=== PATIENT | female | born 1960 | race Two or more races ===

== ENCOUNTER → 2024-05-29 | Outpatient (CLI) | payer MEDICAID, SELFPAY ==
--- NOTE | 2024-05-29 09:30 | XR_ITS ---
Examination: Screening digital mammography, bilateral Computer aided detection 3-D breast Tomosynthesis, bilateral Date and time of exam: May 29, 2024 0923 hours Compared to mammograms dating to October 12, 2009 Indication: Screening Technique: Nonmagnified MLO, CC views of the breasts to been obtained, reconstructed from 3-D Tomosynthesis images. R2 computer aided detection program utilized for evaluation of suspicious masses and/or abnormal calcifications. 3-D Tomosynthesis images obtained. Findings: Scattered areas of fibroglandular density Benign calcifications No interval suspicious masses Impression: BI-RADS category II: Benign Findings. Recommend 1 year follow-up mammogram.
== END | disposition home or self-care (01) ==
LOC: CDIM 09:04
PROVIDERS: Referring Provider Physician Assistant; Visit Provider Physician Assistant
DX: Z12.31 Encounter for screening mammogram for malignant neoplasm of breast (principal); R92.323 Mammographic fibroglandular density, bilateral breasts; R92.1 Mammographic calcification found on diagnostic imaging of breast
CPT/HCPCS: 77063; 77067

== ENCOUNTER 2025-03-19 14:17 | Emergency (ER) | payer MEDICARE, MEDICAID, SELFPAY ==
[2025-03-19 14:41] VITALS: BP 131/82; PULSE 73; RESP 18; TEMP 36.7; O2SAT 96
--- NOTE | 2025-03-19 15:02 | PD.EDEYE ---
ED Eye Problem RME/HPI General Chief complaint: Eye Problems Stated complaint: SWELLING L) EYE Time Seen by Provider: 03/19/25 14:24 Arrival date/time: 03/19/25 14:17 64-year-old female reports with complaints of swelling around the left eye that began this morning. Patient says 2 days ago she used a hair product that contains some chemicals that left her scalp burning and itching and then she awoke this morning with left eye swelling but no pain no discharge no changes in vision no shortness of breath no tongue or face swelling. Patient states that she has not taken any medications for symptoms Limitations: no limitations Related Data Home Medications ?Medication ?Instructions ?Recorded ?Confirmed cyclobenzaprine 5 mg tablet 5 mg PO HS 07/05/22 07/05/22 meloxicam 7.5 mg tablet 15 mg PO QDAY 07/05/22 07/05/22 sertraline 25 mg tablet 25 mg PO QDAY 07/05/22 07/05/22 Previous Rx's ?Medication ?Instructions ?Recorded acetaminophen 325 mg tablet 325 mg PO QID PRN headache #20 tabs 09/19/22 (Non-Aspirin) diazepam 10 mg tablet 10 mg PO BID PRN muscle spasm #6 01/28/23 tabs Allergies Allergy/AdvReac Type Severity Reaction Status Date / Time No Known Allergies Allergy Verified 03/19/25 14:22 Review of Systems Constitutional Constitutional: Denies chills and Denies fever(s) Eyes Eyes: Denies blurry vision and Denies exophthalmos ENT Ears, Nose, Mouth, and Throat: Denies throat swelling and Denies tongue swelling Cardiovascular Cardiovascular: Denies chest pain and Denies dyspnea Respiratory Respiratory: Denies cough and Denies dyspnea Integumentary/Breasts Skin/Breast: Reports skin swelling and Denies unusual bruising Allergic/Immunologic Allergic/Immunologic: Denies throat swelling and Denies tongue swelling Past Medical History Past Medical History NEUROLOGIC: Negative Neurological Disorders, Seizures or Migraine CARDIAC: Positive Cardiac Disorders, Hypercholesterolemia (no meds) and Hypertension; Negative Congestive Heart Failure RESPIRATORY: Negative Chronic Obstructive Pulmonary Disease (COPD), Tuberculosis or Sleep Apnea GASTROINTESTINAL: Positive Gastrointestinal Disorders, Gastroesophageal Reflux Disease and Obesity (fatty liver); Negative Hepatitis GENITOURINARY: Negative Genitourinary Disorders or Renal Disease REPRODUCTIVE: Positive Previous Pregnancies MUSCULOSKELETAL: Positive Musculoskeletal Disorders and Arthritis (all over body) ENDOCRINE: Negative Endocrine Disorders, Diabetes Mellitus Type 1, Diabetes Mellitus Type 2 or Hypothyroidism HEMATOLOGIC: Negative Blood Disorders or Anemia PSYCHO/SOCIAL: Positive Depression; Negative Anxiety OTHER HISTORY: Positive Hospitalization (fracture right ankle) and Shingles; Negative Autoimmune Disease, Falls, Blood Transfusions, Blood Transfusion Reaction, Anesthesia Reactions, MRSA, Chicken Pox, Measles, Mumps or Cancer Family History FAMILY HISTORY: Positive Family Cardiac Disorders and Family Surgery; Negative Family Psychiatric Problems, Family Respiratory Disorders, Family Gastrointestinal Problems, Family Cancer or Family Anesthesia Reaction Surgical History SURGICAL: Positive Open Reduction Internal Fixation (right ankle) and Section (x1); Negative Cardiac Surgery, Endocrine Surgery, Ear Surgery, Tympanostomy Tube, Abdominal Surgery, Nephrectomy or Neurologic Surgery Social History SMOKING STATUS: Never smoker SECOND HAND EXPOSURE: No SUBSTANCE USE: does not use OCCUPATION: [employer] worker ED Exam General Limitations: Present no limitations General appearance: Present alert and in no apparent distress Head Head exam: Present atraumatic Eye Eye exam: Present normal appearance, PERRL, EOMI and periorbital swelling (left eye extending to maxillary but no true ocular involvement, no erythema); Absent conjunctival injection, nystagmus, miosis, mydriasis or periorbital tenderness ENT ENT exam: Present normal exam, normal oropharynx and mucous membranes moist Neck Neck exam: Present normal inspection, full ROM and trachea midline Chest Chest inspection: Present normal inspection and symmetric chest wall rise Respiratory Respiratory exam: Present normal lung sounds bilaterally Cardiovascular Cardiovascular exam: Present regular rate, normal rhythm and normal heart sounds Neurological Exam Neurological exam: Present alert, oriented X3 and CN II-XII intact Psychiatric Psychiatric exam: Present normal affect and normal mood Skin Skin exam: Present warm, dry, intact and normal color Course Quality Measures none Orders Category Date Time Status Dexamethasone Inj [Decadron Inj] Med 03/19/25 15:02 Once 10 mg PO X1 ONE Vital Signs Vital signs: Vital Signs Temperature 98.0 F 03/19/25 14:41 Pulse Rate 73 03/19/25 14:41 Respiratory Rate 18 03/19/25 14:41 Blood Pressure 131/82 H 03/19/25 14:41 Pulse Oximetry (%) 96 03/19/25 14:41 Oxygen Delivery Method Room Air 03/19/25 14:41 Eye Patient data External records reviewed:: None Clinical information provided by:: patient Social determinants that could affect healthcare access:: none Patient has the following chronic illnesses:: none How is presenting disease/condition affected by chronic disease/condition?: no chronic disease Evaluation data The following diagnostics were reviewed and interpreted by me:: other (specify) (none) Lab and/or radiology exams considered but not ordered:: none Interpretation Summary: n/a Medications / Prescriptions Medications or Prescriptions considered but not ordered:: none Medication administrations:: Decadron Consultations Consultation(s) initiated? (list below): No Diagnosis Eye Problem Differential Diagnosis: conjunctivitis, periorbital cellulitis and other (Allergic reaction) Most likely diagnosis given after review of the tests above:: Allergic reaction Admission Indicated Admission indicated?: not indicated Admission Request Was there a request for admission?: No Disposition Plan Disposition Plan: Discharge Discharge Attestation Discharge Attestation: The patient and all family members were given an opportunity to ask questions and understood the discharge instructions. Discharge instructions specifically effects, indications for sooner follow up or return to the emergency department, and the expected course of current diagnosis. Patient condition: Stable Discharge Plan Plan Patient Disposition: HOME (Self Care) Prescriptions/Referrals Prescriptions/Med Rec: No Action sertraline 25 mg Tablet 25 mg PO QDAY cyclobenzaprine [Flexeril] 5 mg Tablet 5 mg PO HS meloxicam 7.5 mg tablet 15 mg PO QDAY acetaminophen [Non-Aspirin] 325 mg tablet 325 mg PO QID PRN (Reason: headache) Qty: 20 0RF diazepam 10 mg tablet 10 mg PO BID PRN (Reason: muscle spasm) Qty: 6 0RF Problem List Clinical Impression: Allergic reaction Patient/Caregiver Discharge Instructions Discharge Activity: activity as tolerated Additional Instructions: Continue the use of the hair product as you are allergic to it. You can take medication such as Benadryl to help with itching. If you have other face or tongue swelling or shortness of breath or throat swelling or closing return to the emergency department immediately otherwise follow-up with your primary care provider as needed Print Language: Citizen Of [place] Stand Alone Forms: Valarie Award Info., Patient Portal Info Letter
[2025-03-19] MEDS: DEXAMETHASONE SOD PHOS INJ 10 MG/ML VIAL PO (15:46)
== END 2025-03-19 16:02 | disposition home or self-care (01) ==
LOC: SERX 15:26
PROVIDERS: Emergency Provider Family Medicine
DX: H57.89 Other specified disorders of eye and adnexa (principal); R20.8 Other disturbances of skin sensation; L29.9 Pruritus, unspecified; T49.4X5A Adverse effect of keratolytics, keratoplastics, and other hair treatment drugs and preparations, initial encounter
CPT/HCPCS: 99282; J1100